=== PATIENT | male | born 1990 | race Caucasian/White ===

== ENCOUNTER 2023-02-28 16:20 | Emergency (ER) | payer OTHER, SELFPAY ==
[2023-02-28 16:31] VITALS: BP 140/83; PULSE 101; RESP 16; TEMP 37.2; O2SAT 98
--- NOTE | 2023-02-28 16:52 | ED.URI ---
HPI - URI/Sore Throat General Chief Complaint: Upper Respiratory Infection Stated Complaint: sinus infection Time Seen by Provider: 02/28/23 16:52 Source: patient and RN notes reviewed Mode of arrival: ambulatory Limitations: no limitations History of Present Illness HPI Narrative: 32 y/o male presented for c/o sore throat, sinus congestion, drainage, cough and fever for 3 days. Reports temp up to 103, broke last night. Also had episode of diarrhea yesterday. Taking Dayquil/Nyquil for symptoms. Denies sob, wheezing, or vomiting. States his kids were recently sick. MD elicited complaint: cough Related Data Home Medications Medication Instructions Recorded Confirmed No Home Medications 02/28/23 02/28/23 Allergies Allergy/AdvReac Type Severity Reaction Status Date / Time No Known Allergies Allergy Verified 02/28/23 16:49 Review of Systems Review of Systems: CONSTITUTIONAL: Endorses malaise, chills, sweats, fever EYES: Denies visual changes, redness, or discharge ENT: Reports rhinorrhea, congestion, sore throat CARDIOVASCULAR: Denies chest pain, palpitations, edema RESPIRATORY: Reports cough, post nasal drainage. Denies dyspnea GASTROINTESTINAL: Denies abdominal pain, nausea, vomiting SKIN: Denies rash or itching MUSCULOSKELETAL: Endorses myalgia NEUROLOGIC: reports headache PMFSH Past Medical History Medical History (Updated 02/28/23 @ 17:01 by Tuyet Conde, [facility]) No pertinent past medical history Exam Narrative: GENERAL: mildly Ill-appearing, nontoxic no acute distress. HEAD: Normocephalic EYES: PERRLA, conjunctivae clear ENT: Mucous membranes moist. TMs pearly padilla with dull light reflex bilaterally; no tragal tenderness. Oropharynx erythematous without lesions or exudate, no drooling, no hoarseness, no trismus, uvula midline. No tripod positioning, muffled voice, soft palate or pharyngeal wall bulging NECK: Supple. No lymphadenopathy CHEST: Clear to auscultation, breath sounds equal. No wheezing, rhonchi, rales, or stridor. No respiratory distress, speaks in full sentences. HEART: Regular rate and rhythm. No murmur heard. SKIN: Warm, dry, no rash. NEURO: Alert and oriented x3. PSYCH: Normal mood and affect Course Course Emergency Course: Patient is aware of diagnosis, understands and agrees to treatment plan. Anticipatory guidance given. Patient agrees to follow-up as directed and is aware of reasons to seek care at the emergency department. Portions of this record may have been created with voice recognition software Level of Care: Express Care Visit Vital Signs Vital signs: Vital Signs Temperature 99 F 02/28/23 16:31 Pulse Rate 101 H 02/28/23 16:31 Respiratory Rate 16 02/28/23 16:31 Blood Pressure 140/83 02/28/23 16:31 Pulse Oximetry 98 02/28/23 16:31 Oxygen Delivery Room Air 02/28/23 16:31 Temperature 99 F 02/28/23 16:31 Pulse Rate 101 H 02/28/23 16:31 Respiratory Rate 16 02/28/23 16:31 Blood Pressure 140/83 02/28/23 16:31 Pulse Oximetry 98 02/28/23 16:31 Oxygen Delivery Room Air 02/28/23 16:31 reviewed MDM - URI/Sore Throat MDM Narrative Medical decision making narrative: negative strep test results reviewed with patient. Advise COVID testing, he states he will test at home. Discussed physical exam findings. Advised supportive measures and signs/symptoms to go to the ER. Pt is appropriate for outpt treatment and f/u. Differential Diagnosis Differential diagnosis: Likely upper respiratory infection, sinusitis, viral infection, influenza and pharyngitis Discharge Plan Discharge Clinical Impression: Upper respiratory infection Patient Disposition: Home, Self-Care Condition: Stable Instructions: Upper Respiratory Infection (ED) Additional Instructions: Rapid strep swab was negative today You will be notified in a few days if the culture comes back positive for strep, and appropriate antibiotics will b
== END 2023-02-28 17:00 | disposition home or self-care (01) ==
PROVIDERS: Emergency Provider Nurse Practitioner Family
DX: J06.9 Acute upper respiratory infection, unspecified (principal)
CPT/HCPCS: 87081; 87880; 99213; G0463

== ENCOUNTER 2023-11-19 13:24 | Emergency (ER) | payer OTHER, SELFPAY ==
[2023-11-19 13:34] VITALS: BP 148/84; PULSE 100; RESP 18; TEMP 38; O2SAT 99
--- NOTE | 2023-11-19 13:42 | ED.GENADULT ---
HPI - General Adult General Stated complaint: fever/throat/headache Source: patient, RN notes reviewed and old records reviewed Mode of arrival: ambulatory Limitations: no limitations History of Present Illness HPI narrative: 33-year-old male patient presents to [facility] with complaint of myalgia, fatigue, body aches, fever, chills, congestion, scratchy throat that started this a.m. patient has not taken anything for symptoms. Patient denies chest pain, shortness breath, weakness, dizziness. MD complaint: fever Onset (ago): hour(s) (6) Related Data Home Medications Medication Instructions Recorded Confirmed diphenhydramine HCl 50 mg capsule 50 mg PO HS 11/19/23 11/19/23 Allergies Allergy/AdvReac Type Severity Reaction Status Date / Time No Known Allergies Allergy Verified 02/28/23 16:49 Review of Systems Constitutional: Constitutional: Reports no additional constitutional complaints, Reports body ache(s), Denies chills, Reports fatigue, Denies fever(s) and Reports headache(s) Eyes: Eyes: Reports no additional eye complaints and Denies blurry vision ENT: Reports system reviewed and no additional complaints, except as documented, Denies vertigo, Denies dizziness, Denies ear discharge, Denies otalgia, Denies facial pain, Denies headache(s), Reports nasal congestion, Denies nasal discharge, Denies sinus pain, Reports sinus pressure and Reports sore throat Cardiovascular: Cardiovascular: Reports no additional cardiovascular complaints, Denies chest pain, Denies chest pain at rest, Denies rapid heart rate and Denies dyspnea Respiratory: Respiratory: Reports no additional respiratory complaints, Denies chest congestion, Denies cough, Denies pain on inspiration, Denies pain with cough and Denies dyspnea Gastrointestinal: Gastrointestinal: Denies abdominal pain, Denies diarrhea, Denies nausea and Denies vomiting Integumentary/Breasts: Skin/Breast: Denies rash Neurologic: Reports system reviewed and no additional complaints, except as documented, Denies vertigo, Denies dizziness and Denies headache(s) Endocrine: Endocrine: Denies fatigue [facility] Past Medical History Medical History No pertinent past medical history Comments At the time of my signature, I reviewed and agree with the nursing past medical, surgical, social, and family history. There is no relevant family history pertinent to the patient complaint. Exam Const: General: cooperative, healthy appearing, no acute distress and well nourished Nutritional Appearance: well nourished Orientation/consciousness: patient oriented x3 Limitations: no limitations HENMT: Head: normal to inspection and normocephalic Ears: external ears normal, TM's normal bilaterally, mastoids normal and Abnormal EAC present Face/Nose/Sinus: normal facial exam Face and sinus: normal facial exam Mouth: Yes Normal oral and palatal mucosa present, Yes oropharynx normal and Yes moist mucous membranes Throat: tonsils normal, uvula midline, posterior oropharynx abnormal erythema and no uvular edema Eyes: General: appearance normal, both eyes and all related structures Sclera: sclerae normal Pupils: Equal, round and reactive pupils present Resp: Effort & Inspection: normal respiratory effort, able to speak in complete sentences, no audible wheezes, no cough, no respiratory distress and no retractions Auscultation: clear to auscultation bilaterally, no crackles, no rales, no rhonchi and no wheezes Cardio: Rate: regular rate Rhythm: regular rhythm Skin: General skin exam: normal color and no rashes or lesions noted Neuro: General: patient oriented x3 Cranial nerves: Yes Equal, round and reactive pupils present Psych: Appearance: grossly normal Mental Status: mental status grossly normal Speech and movement: Normal speech and movement present Affect: normal affect Course Course Emergency Course: Patient is aware of diagnos
[2023-11-19 14:00] VITALS: BP 148/84; PULSE 100; RESP 18; TEMP 38; O2SAT 99
== END 2023-11-19 14:05 | disposition home or self-care (01) ==
PROVIDERS: Emergency Provider Registered Nurse
DX: B34.9 Viral infection, unspecified (principal); Z20.822 Contact with and (suspected) exposure to COVID-19
CPT/HCPCS: 87081; 87426; 87804; 87880; 99213; G0463

== ENCOUNTER 2024-01-28 13:26 | Emergency (ER) | payer OTHER, SELFPAY ==
[2024-01-28 13:36] VITALS: BP 144/94; PULSE 78; RESP 18; TEMP 37.2; O2SAT 97
--- NOTE | 2024-01-28 14:04 | ED.URI ---
HPI - URI/Sore Throat General Chief Complaint: Upper Respiratory Infection Stated Complaint: Cough/Congestion/Chest Congestioin Time Seen by Provider: 01/28/24 14:00 Source: patient and RN notes reviewed Mode of arrival: ambulatory Limitations: no limitations History of Present Illness HPI Narrative: 33-year-old male presented for complaint of nasal congestion, pressure, and for over 1 week. He has taken multiple upnl-rsh-dcsrqos medications without relief. He endorses seasonal allergies at least twice a year which are usually resolved with the [id number] medications. He denies shortness of breath, wheezing, nausea vomiting, fevers or chills. He states he missed work today and does need a note to return. MD elicited complaint: cough Related Data Allergies Allergy/AdvReac Type Severity Reaction Status Date / Time No Known Allergies Allergy Verified 02/28/23 16:49 Review of Systems Review of Systems: CONSTITUTIONAL: Denies malaise, chills, sweats, fever EYES: Denies visual changes, redness, or discharge ENT: Reports rhinorrhea, congestion, sinus pain, denies otalgia, sore throat CARDIOVASCULAR: Denies chest pain, palpitations, edema RESPIRATORY: Reports cough, post nasal drainage. Denies dyspnea GASTROINTESTINAL: Denies abdominal pain, nausea, vomiting, diarrhea SKIN: Denies rash or itching MUSCULOSKELETAL: denies myalgia NEUROLOGIC: Denies headache PMFSH Past Medical History Medical History No pertinent past medical history Exam Narrative: GENERAL: Mildly Ill-appearing, nontoxic no acute distress. EYES: PERRLA, conjunctivae clear ENT: Mucous membranes moist. TMs pearly padilla with dull light reflex bilaterally; no tragal tenderness. Oropharynx erythematous without lesions or exudate, no drooling, no hoarseness, no trismus, uvula midline. No tripod positioning, muffled voice, soft palate or pharyngeal wall bulging NECK: Supple. No lymphadenopathy CHEST: Clear to auscultation, breath sounds equal. No wheezing, rhonchi, rales, or stridor. No respiratory distress, speaks in full sentences. HEART: Regular rate and rhythm. No murmur heard. SKIN: Warm, dry, no rash. NEURO: Alert and oriented x3. PSYCH: Normal mood and affect Course Course Emergency Course: Patient is aware of diagnosis, understands and agrees to treatment plan. Anticipatory guidance given. Patient agrees to follow-up as directed and is aware of reasons to seek care at the emergency department. Portions of this record may have been created with voice recognition software Level of Care: Express Care Visit Vital Signs Vital signs: Vital Signs Temperature 98.9 F 01/28/24 13:36 Pulse Rate 78 01/28/24 13:36 Respiratory Rate 18 01/28/24 13:36 Blood Pressure 144/94 H 01/28/24 13:36 Pulse Oximetry 97 01/28/24 13:36 Oxygen Delivery Room Air 01/28/24 13:36 Temperature 98.9 F 01/28/24 13:36 Pulse Rate 78 01/28/24 13:36 Respiratory Rate 18 01/28/24 13:36 Blood Pressure 144/94 H 01/28/24 13:36 Pulse Oximetry 97 01/28/24 13:36 Oxygen Delivery Room Air 01/28/24 13:36 reviewed MDM - URI/Sore Throat MDM Narrative Medical decision making narrative: Discussed physical exam findings. Advised supportive measures and signs/symptoms to go to the ER. Pt is appropriate for outpt treatment and f/u. Differential Diagnosis Differential diagnosis: Likely upper respiratory infection, sinusitis and viral infection Discharge Plan Discharge Clinical Impression: Upper respiratory infection Patient Disposition: Home, Self-Care Condition: Stable Instructions: Antibiotic Form, Upper Respiratory Infection (ED) Additional Instructions: Recommend Flonase spray and Zyrtec (or Claritin/Pamela) over the counter Cough syrup may cause drowsiness; avoid driving or take it at night time. Tylenol 1000mg every 8 hours as needed for pain Symptomati
== END 2024-01-28 14:22 | disposition home or self-care (01) ==
PROVIDERS: Emergency Provider Nurse Practitioner Family
DX: J06.9 Acute upper respiratory infection, unspecified (principal)
CPT/HCPCS: 99213; G0463

== ENCOUNTER 2024-11-06 13:59 | Emergency (ER) | payer OTHER, SELFPAY ==
--- NOTE | 2024-11-06 14:01 | ED.URI ---
HPI - URI/Sore Throat General Chief Complaint: Upper Respiratory Infection Stated Complaint: upper respsiratory Time Seen by Provider: 11/06/24 14:24 Source: patient and RN notes reviewed Mode of arrival: ambulatory Limitations: no limitations History of Present Illness HPI Narrative: 33-year-old male presents concern for 3 day history of cough, sinus congestion. Reports he missed work today and would like to return to work tomorrow. He denies fever, aches, chills, sweats. Reports he was using DayQuil NyQuil. MD elicited complaint: cough and nasal congestion Related Data Allergies Allergy/AdvReac Type Severity Reaction Status Date / Time No Known Allergies Allergy Verified 02/28/23 16:49 Review of Systems Review of Systems: CONSTITUTIONAL: Denies malaise, chills, sweats, or fever. EYES: Denies visual changes, redness, or discharge. ENT: Reports rhinorrhea, congestion CARDIOVASCULAR: Denies chest pain, palpitations, or edema. RESPIRATORY: Reports cough. Denies dyspnea. GASTROINTESTINAL: Denies abdominal pain, nausea, vomiting, diarrhea SKIN: Denies rash or itching. MUSCULOSKELETAL: Denies myalgia. NEUROLOGIC: Denies headache. All systems reviewed & are unremarkable except as noted in HPI and below PMFSH Past Medical History Medical History No pertinent past medical history Comments At time of signature, agree with nursing past medical, surgical, social and family history. There is no relevant family history pertinent to the presenting complaint Exam Narrative: GENERAL: Well-appearing, well-nourished, and in no acute distress. HEAD: Normocephalic EYES: PERRLA, conjunctivae clear ENT: Nares clear, turbinates edematous and erythematous, clear discharge. Mucous membranes moist. TM pearly padilla with sharp light reflex bilaterally; no tragal tenderness. Oropharynx not erythematous without lesions. Tonsils not enlarged and without exudate, no drooling, no hoarseness, no trismus, uvula midline. NECK: Supple. No lymphadenopathy CHEST: Clear to auscultation, breath sounds equal. No wheezing, rhonchi, rales, or stridor. No respiratory distress, speaks in full sentences. HEART: Regular rate and rhythm. No murmur heard. SKIN: Warm, dry, no rash. NEURO: Alert and oriented x3. PSYCH: Normal mood and affect Course Course Emergency Course: Patient is aware of diagnosis, understands and agrees to treatment plan. Anticipatory guidance given. Patient agrees to follow-up as directed and is aware of reasons to seek care at the emergency department. Portions of this record may have been created with voice recognition software Level of Care: Express Care Visit Vital Signs Vital signs: Vital Signs Temperature 97.9 F 11/06/24 14:02 Pulse Rate 106 H 11/06/24 14:02 Respiratory Rate 18 11/06/24 14:02 Blood Pressure 142/103 H 11/06/24 14:02 Pulse Oximetry 98 11/06/24 14:02 Oxygen Delivery Room Air 11/06/24 14:02 Temperature 97.9 F 11/06/24 14:02 Pulse Rate 106 H 11/06/24 14:02 Respiratory Rate 18 11/06/24 14:02 Blood Pressure 142/103 H 11/06/24 14:02 Pulse Oximetry 98 11/06/24 14:02 Oxygen Delivery Room Air 11/06/24 14:02 Reviewed. MDM - URI/Sore Throat MDM Narrative Medical decision making narrative: Differential diagnosis considered: Curtis virus, strep pharyngitis, allergic rhinitis, upper respiratory tract infection, sinusitis, rhinosinusitis, nasopharyngitis. viral pharyngitis, otitis media, otitis externa, pneumonia, bronchitis, viral cough syndrome, viral syndrome, and influenza. Exam findings show no acute concerns or changes; patient is non-toxic appearing and is in no distress. Patient is appropriate for outpatient treatment and follow-up. Lab Data Attestation: I reviewed the patient's lab results. Critical Care Time Critical Care Time Critical Care Time: No Discharge Plan Discharge Clinical Impression: Upper respiratory infection Patient Disposition: Home, Self-Care Condition: Stable Instructions: Upper Respiratory Infection (ED) Additional Instructions: Viral illness may last between 7-21 days; antibiotics do not cure viral illness and are NOT recommended at this time. Recommend antihistamine such as Benadryl at night time and Zyrtec or Pamela during the day Also, recommend symptomatic treatment includes: rest, fluids, and increase humidity of the air at home. Recommend Acetaminophen as directed on the bottle to reduce fever, pain, headache. Avoid smoking/second-hand smoke. Please schedule a follow-up visit with your personal physician for further evaluation and treatment within 3-5days. Including recheck and discussion of your blood pressure. If your symptoms persist, change or worsen significantly before you can contact your personal physician then please, without delay, go to the emergency department for further evaluation. Patient Language: Ukrainian Prescriptions: New pseudoephedrine HCl [12 Hour Decongestant] 120 mg tablet extended release 120 mg PO Q12H PRN (Reason: nasal congestion) Qty: 20 0RF dextromethorphan-guaifenesin [Mucinex DM] 60-1,200 mg tablet extended release 12 hr 1 tablet PO Q12H Qty: 12 0RF No Action amoxicillin-pot clavulanate 875-125 mg tablet 1 tablet PO Q12H 7 Days Qty: 14 0RF Follow-up/Referrals: UNKNOWN,DOCTOR [Non-Staff] - Stand Alone Forms: Work/School Release IP Time of Disposition: 14:33
[2024-11-06 14:02] VITALS: BP 142/103; PULSE 106; RESP 18; TEMP 36.6; O2SAT 98
== END 2024-11-06 14:36 | disposition home or self-care (01) ==
PROVIDERS: Emergency Provider Nurse Practitioner
DX: J06.9 Acute upper respiratory infection, unspecified (principal)
CPT/HCPCS: 99213; G0463

== ENCOUNTER 2025-01-05 14:57 | Emergency (ER) | payer OTHER, SELFPAY ==
[2025-01-05 15:00] VITALS: BP 149/85; PULSE 85; RESP 20; TEMP 36.6; O2SAT 100
--- NOTE | 2025-01-05 15:06 | ED.URI ---
HPI - URI/Sore Throat General Chief Complaint: Upper Respiratory Infection Stated Complaint: Respiratory congestion Source: patient and RN notes reviewed Mode of arrival: ambulatory Limitations: no limitations History of Present Illness HPI Narrative: 34-year-old male presented for complaint of cough, nasal congestion and sinus pressure for 4 days. Symptoms are worse at night. Denies shortness, wheezing vomiting diarrhea fevers or lethargy. Feeling with similar symptoms. Patient is taking Mucinex for symptoms. Needs a work note to return tomorrow. MD elicited complaint: cough Related Data Home Medications ?Medication ?Instructions ?Recorded ?Confirmed ?Last Taken ?Type No Home Medications 01/05/25 Unknown History Allergies Allergy/AdvReac Type Severity Reaction Status Date / Time No Known Allergies Allergy Verified 01/05/25 15:04 Review of Systems Review of Systems: per [facility] Past Medical History Medical History No pertinent past medical history Exam Narrative: GENERAL:well-appearing, nontoxic no acute distress. EYES: PERRLA, conjunctivae clear ENT: Mucous membranes moist. TMs pearly padilla with dull light reflex bilaterally; no tragal tenderness. Oropharynx erythematous without lesions or exudate, no drooling, no hoarseness, no trismus, uvula midline. No tripod positioning, muffled voice, soft palate or pharyngeal wall bulging NECK: Supple. No lymphadenopathy CHEST: Clear to auscultation, breath sounds equal. No wheezing, rhonchi, rales, or stridor. No respiratory distress, speaks in full sentences. HEART: Regular rate and rhythm. SKIN: Warm, dry, no rash. NEURO: Alert and oriented x3. PSYCH: Normal mood and affect Course Course Emergency Course: Patient is aware of diagnosis, understands and agrees to treatment plan. Anticipatory guidance given. Patient agrees to follow-up as directed and is aware of reasons to seek care at the emergency department. Portions of this record may have been created with voice recognition software Level of Care: Express Care Visit Vital Signs Vital signs: reviewed MDM - URI/Sore Throat MDM Narrative Medical decision making narrative: Discussed physical exam findings.neg flu and covid. Advised supportive measures and signs/symptoms to go to the ER. Pt is appropriate for outpt treatment and f/u. Differential Diagnosis Differential diagnosis: Likely upper respiratory infection, sinusitis and viral infection Discharge Plan Discharge Clinical Impression: Upper respiratory infection Patient Disposition: Home, Self-Care Condition: Stable Instructions: Antibiotic Form, Upper Respiratory Infection (ED) Additional Instructions: Recommend : Flonase spray and Zyrtec (or Claritin/Pamela) over the counter Cough syrup may cause drowsiness; avoid driving or take it at night time. Tylenol 1000mg every 8 hours as needed for pain Symptomatic treatment includes: rest, fluids, and increase humidity of the air at home. Follow up with your primary care provider in 1 week. Go to the ER for worsening symptoms or concerns. Patient Language: Tongan Prescriptions: No Action No Home Medications Follow-up/Referrals: PHYSICIAN,BIOMEDICAL SCIENTIST [Primary Care Provider] - Stand Alone Forms: Work/School Release IP
[2025-01-05 15:21] LABS: EDCOVIDSCREEN Negative (Negative); EDINFLUASCREEN Negative (Negative); EDINFLUBSCREEN Negative (Negative)
== END 2025-01-05 15:22 | disposition home or self-care (01) ==
PROVIDERS: Emergency Provider Nurse Practitioner Family
DX: J06.9 Acute upper respiratory infection, unspecified (principal); Z20.822 Contact with and (suspected) exposure to COVID-19
CPT/HCPCS: 87426; 87804; 99212; G0463

== ENCOUNTER 2025-03-18 12:08 | Emergency (ER) | payer OTHER, SELFPAY ==
[2025-03-18 12:13] VITALS: BP 157/119; PULSE 92; RESP 16; TEMP 37; O2SAT 98
[2025-03-18 12:17] VITALS: BP 154/108
[2025-03-18 12:31] LABS: EDSTREPNEGPOS1 Negative (Negative)
--- NOTE | 2025-03-18 12:31 | ED.URI ---
HPI - URI/Sore Throat General Chief Complaint: Upper Respiratory Infection Stated Complaint: sinus congestion/sore throat Time Seen by Provider: 03/18/25 12:31 Source: patient and RN notes reviewed Mode of arrival: ambulatory Limitations: no limitations History of Present Illness HPI Narrative: 34 year old male presents with concern for sore throat, sinus pressure and congestion. Reports symptoms started yesterday. Reports he takes Flonase for allergies. He has been taking [id number] cold medicines without relief. He denies fever. Reports body aches MD elicited complaint: sore throat Related Data Allergies Allergy/AdvReac Type Severity Reaction Status Date / Time No Known Allergies Allergy Verified 03/18/25 12:17 Review of Systems Review of Systems: CONSTITUTIONAL: Denies malaise, chills, sweats, or fever. EYES: Denies visual changes, redness, or discharge. ENT: Denies rhinorrhea. Reports sinus pressure and congestion, sore throat. CARDIOVASCULAR: Denies chest pain, palpitations, or edema. RESPIRATORY: Denies cough. Denies dyspnea. GASTROINTESTINAL: Denies abdominal pain, nausea, vomiting, diarrhea SKIN: Denies rash or itching. MUSCULOSKELETAL: Reports myalgia. NEUROLOGIC: Denies headache. All systems reviewed & are unremarkable except as noted in HPI and below PMFSH Past Medical History Medical History No pertinent past medical history Comments At time of signature, agree with nursing past medical, surgical, social and family history. There is no relevant family history pertinent to the presenting complaint Exam Narrative: GENERAL: Well-appearing, well-nourished, and in no acute distress. HEAD: Normocephalic EYES: PERRLA, conjunctivae clear ENT: Nares clear. Mucous membranes moist. TM pearly padilla with dull light reflex bilaterally; no tragal tenderness. Oropharynx not erythematous without lesions. Tonsils not enlarged and without exudate, no drooling, no hoarseness, no trismus, uvula midline. NECK: Supple. No lymphadenopathy CHEST: Clear to auscultation, breath sounds equal. No wheezing, rhonchi, rales, or stridor. No respiratory distress, speaks in full sentences. HEART: Regular rate and rhythm. No murmur heard. SKIN: Warm, dry, no rash. NEURO: Alert and oriented x3. PSYCH: Normal mood and affect Course Course Emergency Course: Patient is aware of diagnosis, understands and agrees to treatment plan. Anticipatory guidance given. Patient agrees to follow-up as directed and is aware of reasons to seek care at the emergency department. Portions of this record may have been created with voice recognition software Level of Care: Express Care Visit Vital Signs Vital signs: Vital Signs Temperature 98.6 F 03/18/25 12:13 Pulse Rate 92 03/18/25 12:13 Respiratory Rate 16 03/18/25 12:13 Blood Pressure 157/119 H 03/18/25 12:13 Pulse Oximetry 98 03/18/25 12:13 Oxygen Delivery Room Air 03/18/25 12:13 Temperature 98.6 F 03/18/25 12:13 Pulse Rate 92 03/18/25 12:13 Respiratory Rate 16 03/18/25 12:13 Blood Pressure 154/108 H 03/18/25 12:17 Pulse Oximetry 98 03/18/25 12:13 Oxygen Delivery Room Air 03/18/25 12:13 Reviewed. MDM - URI/Sore Throat MDM Narrative Medical decision making narrative: Differential diagnosis considered: Curtis virus, strep pharyngitis, allergic rhinitis, upper respiratory tract infection, sinusitis, rhinosinusitis, nasopharyngitis. viral pharyngitis, otitis media, otitis externa, pneumonia, bronchitis, viral cough syndrome, viral syndrome, and influenza. Exam findings show no acute concerns or changes; patient is non-toxic appearing and is in no distress. Patient is appropriate for outpatient treatment and follow-up. Lab Data Attestation: I reviewed the patient's lab results. Critical Care Time Critical Care Time Critical Care Time: No Discharge Plan Discharge Clinical Impression: Upper respiratory infection Patient Disposition: Home Condition: Stable Instructions: Upper Respiratory Infection (ED) Additional Instructions: Your rapid strep swab was negative today at [facility]. A throat culture will be sent to the laboratory for further testing. If the test is positive, you will receive a phone call within 48 hours and an appropriate antibiotic will be initiated at that time. Your symptoms are likely due to a viral illness, which is not treated with antibiotics. Viral symptoms can be present for up to a few weeks. -Alternate Tylenol and Motrin per package directions for fever or pain. -Antihistamine medication such as Benadryl at night and Zyrtec during the day can help improve symptoms. -Eat and drink things that are easy to swallow, like tea or soup, or popsicles to suck on. -Oral rinses such as: Salt water gargles and/or may use topical anesthetic (eg. Chloraseptic spray) or lozenges to relieve dryness or throat pain). -Frequent hand washing or hand complex director is one of the best ways to prevent spread of infection. -Follow up with primary care provider in 2-3 days if condition is not improving; or seek ER visit if you have trouble breathing, cannot drink enough fluids, have muffled voice, difficulty opening your mouth, or severe swelling. Patient Language: Tamazight Prescriptions: New pseudoephedrine HCl [12 Hour Decongestant] 120 mg tablet extended release 120 mg PO Q12H PRN (Reason: nasal congestion) Qty: 20 0RF Follow-up/Referrals: PHYSICIAN,PICTURE BOOKER [Primary Care Provider] - Stand Alone Forms: Work/School Release IP Time of Disposition: 12:36
== END 2025-03-18 12:41 | disposition home or self-care (01) ==
PROVIDERS: Emergency Provider Nurse Practitioner
DX: J06.9 Acute upper respiratory infection, unspecified (principal)
CPT/HCPCS: 87081; 87880; 99213; G0463

== ENCOUNTER 2025-06-01 14:23 | Emergency (ER) | payer OTHER, SELFPAY ==
[2025-06-01 14:26] VITALS: BP 134/110; PULSE 117; RESP 20; TEMP 36.6; O2SAT 96
--- OUTSIDE RECORDS SUMMARY | 2025-06-01 14:26 | XMS_ITS | Clinical Summary ---
Author Organization [facility] Address [address] [place] [address] Phone Care Team Providers Care Relay Repairer Name Role Phone Moises Sheppard MD Primary Care Provider [phone] Allergies No known active allergies Medications fluticasone (FLONASE) 50 mcg/spray [place], Suspension Administer 2 Sprays in each nostril daily. Active bacitracin-poly myxin B (POLYSPORIN) 500-10,000 unit/gram Ointment Apply to affected area 2 times daily. 28 Gram 0 5 Active Social History Tobacco Use Types Packs/Day Years Used Date Smoking Tobacco: Every Day Cigarettes Smokeless Tobacco: Never Alcohol Use Standard Drinks/Week Comments Yes 0 (1 standard drink = 0.6 oz pur e alcohol) socially Sex and Gender Information Value Date Recorded Sex Assigned at Not on file Legal Sex Male 5:26 PM CDT Gender Identity Not on file Sexual Orientation Not on file Last Filed Vital Signs Vital Sign Reading Time Taken Comments Blood Pressure 126/73 03/26/2015 9:14 PM CDT Pulse 73 03/26/2015 9:14 PM CDT Temperature 36.2 C (97.1 F) 03/26/2015 5:34 PM CDT Respiratory Rate 16 03/26/2015 9:14 PM CDT Oxygen Saturation 99% 03/26/2015 9:14 PM CDT Inhaled Oxygen Concentration - - Weight 90.7 kg (200 lb) 03/26/2015 5:34 PM CDT Height 180.3 cm (5' 11) 03/26/2015 5:34 PM CDT Body Mass Index 27.89 03/26/2015 5:34 PM CDT Plan of Treatment Health Maintenance Due Date Last Done Comments HPV VACCINES (1 - Male 3-dose series) 2005 DTAP/TDAP/TD VACCINES (1 - Tdap) 2009 HEPATITIS B VACCINES (1 of 3 - 19+ 3-dose series) 06/2010 INFLUENZA VACCINE (#1) 2025 Care Teams Relay Repairer Relationship Specialty Start Date End Date Moises Sheppard MD PCP - General Family Practice 03/26/15
--- NOTE | 2025-06-01 14:29 | ED.URI ---
HPI - URI/Sore Throat General Chief Complaint: Upper Respiratory Infection Stated Complaint: sinus infection History of Present Illness HPI Narrative: patient is a 34-year-old male, past medical history significant for seasonal allergies, presents to [facility] with approximately one-week history of URI symptoms, including nasal congestion, sinus pressure /pain followed by 2-3 day history purulent nasal discharge and malaise. He has no cough. He reports a mildly sore throat in the mornings upon waking. He is taking [id number] Flonase and sinus/ allergy medication without relief. He notes that he frequently gets sinus infections and seasonal allergy symptoms during the fall and spring but has also experienced symptoms in the summer. He works in it and climate controlled area attribute some of his symptoms to the heat as well. He denies any additional associated symptoms or modifying factors. Related Data Allergies Allergy/AdvReac Type Severity Reaction Status Date / Time No Known Allergies Allergy Verified 03/18/25 12:17 Review of Systems ENT: Reports as per [facility] Past Medical History Medical History No pertinent past medical history Exam Const: General: cooperative, healthy appearing, comfortable and no acute distress Nutritional Appearance: average body habitus and well nourished Orientation/consciousness: oriented to person, oriented to place, oriented to time and patient oriented x3 Limitations: no limitations HENMT: Head: normal to inspection, No palpable skull fracture present and normocephalic Ears: hearing grossly normal bilaterally, external ears normal and TM abnormal other ( serous pattern bilaterally) Face/Nose/Sinus: Normal external nose present, face symmetric, sinus tenderness and Other nasal findings present ( nasal mucosa swollen erythematous) Mouth: Yes Normal oral and palatal mucosa present, Yes lip normal, Yes tongue normal, Yes Normal salivary glands and ducts present, Yes oropharynx normal, Yes moist mucous membranes and Yes other ( mild posterior pharyngeal injection, otherwise normal, tonsils absent) Eyes: General: appearance normal, both eyes and all related structures Visual Schrader: normal visual schrader by confrontation Alignment and Position: alignment normal Eyelids: eyelids normal Neck: Neck: normal visual inspection, full ROM, no lymphadenopathy, no meningeal signs, trachea midline and supple Resp: Effort & Inspection: normal respiratory effort Auscultation: clear to auscultation bilaterally Cardio: Jugular venous distension: no JVD Rate: regular rate Heart sounds: S1 normal heart sound present and S2 normal heart sound present Skin: General skin exam: normal color and no rashes or lesions noted Neuro: General: oriented to person, oriented to place, oriented to time, patient oriented x3, gait normal, tone normal, moves all extremities and CN's II-XI intact bilaterally Course Course Emergency Course: patient is taking daily antihistamine and Flonase at baseline. Suspect patient has a postviral secondary an acute bacterial sinusitis, will treat with oral antibiotics as he has not received oral antibiotics in over 6 months for sinus infection per patient report. Will also start daily Singulair to see if this provides any additional symptom relief. He is encouraged to follow-up with PCP if symptoms do improve while on Singulair that he may continue therapy. He may also discuss referral to ENT should his symptoms persist or continue to reoccur every 2-3 months as he currently experiences. Patient verbalized understanding he is agreeable with discharge plan care. Level of Care: Express Care Visit ([id number]) MDM - URI/Sore Throat MDM Narrative Medical decision making narrative: Doxycycline b.i.d. for 10 days and Singulair daily for 30 days Differential Diagnosis Differential diagnosis: Likely upper respiratory infection, otitis media, sinusitis, viral infection, bronchitis, pharyngitis and other ( seasonal allergies) Discharge Plan Discharge Clinical Impression: Sinusitis, Acute seasonal allergic rhinitis Patient Disposition: Home Condition: Stable Instructions: Antibiotic Form, Sinusitis (ED), Allergies (ED) Additional Instructions: YOU MAY CONTINUE [id number] ZYRTEC OR CLARITIN AND FLONASE DIRECTED. ADD SINGULAR DAILY PRESCRIBED, COMPLETE ANTIBIOTICS DIRECTED. TAKE WITH FOOD TO REDUCE GI SIDE EFFECTS AND USE CAUTION THE SUN YOUR SKIN MAY BURN EASIER WHILE ON THIS ANTIBIOTIC THERAPY AND FOR AT LEAST 2 WEEKS FOLLOWING. FOLLOW-UP WITH YOUR PRIMARY DOCTOR IF SYMPTOMS ARE NOT RESOLVING IN 3-5 DAYS Patient Language: Vietnamese Prescriptions: New montelukast [Singulair] 10 mg tablet 10 mg PO HS Qty: 30 0RF doxycycline hyclate 100 mg capsule 100 mg PO BID 10 Days Qty: 20 0RF Follow-up/Referrals: PHYSICIAN,QUALITY ASSURANCE COORDINATOR [Primary Care Provider] - Stand Alone Forms: Work/School Release IP Time of Disposition: 14:42
== END 2025-06-01 14:48 | disposition home or self-care (01) ==
PROVIDERS: Emergency Provider Nurse Practitioner Family
DX: J32.9 Chronic sinusitis, unspecified (principal); J30.2 Other seasonal allergic rhinitis
CPT/HCPCS: 99213; G0463